=== PATIENT | male | born 1955 | race African-American/Black ===

== ENCOUNTER → 2016-12-29 | Outpatient (CLI) | payer OTHER, MEDICAID ==
[2016-09-19 20:49] VITALS: BP 137/75
[2016-12-29 09:18] LABS: BASOPHILS % (AUTO) 0.5 % (0.2-1.0); EOSINOPHILS # (AUTO) 0.1 x10^3/uL (0.0-0.2); EOSINOPHILS % (AUTO) 3.4 % (0.9-2.9); HEMATOCRIT 45.1 % (42.0-54.0); HEMOGLOBIN 15.2 g/dL (13.5-18.0); MEAN CORPUSCULAR HGB CONC 33.6 g/dL (33.0-35.0); MEAN CORPUSCULAR VOLUME 92.4 fL (80.0-100.0); MEAN PLATELET VOLUME 7.6 fL (7.4-11.0); MONOCYTES # (AUTO) 0.4 x10^3/uL (0.3-0.8); MONOCYTES % (AUTO) 9.8 % (0.0-13.0); NEUTROPHILS # (AUTO) 2.8 x10^3/uL (2.2-4.8); NEUTROPHILS % (AUTO) 64.3 % (42.0-75.0); PLATELET COUNT 185 X10^3/uL (150.0-450.0); RED BLOOD COUNT 4.88 X10^6/uL (4.7-6.0); RED CELL DISTRIBUTION WIDTH 12.4 % (11.6-16.5); WHITE BLOOD COUNT 4.4 X10^3/uL (3.6-10.0)
== END ==
LOC: RAD 08:53
PROVIDERS: ATTEND Obstetrics & Gynecology Obstetrics
DX: R05 Cough (principal)
CPT/HCPCS: 36415; 85025

== ENCOUNTER 2017-01-11 15:52 | Emergency (ER) | payer OTHER, MEDICAID ==
[2017-01-11 15:58] VITALS: BP 122/79; BMI 27.3
--- NOTE | 2017-01-11 16:41 | DR.GENAD ---
HPI - PCP Primary Care Physician: MIRA - HPI Comment HPI Comment: CURRENTLY, HEART RATE IS CONTROL. PATIENT SAIT BP WAS NORMAL AND DENIES FEVER. DENIES EXCESS CAFFEINE USE. - Complaint/Symptoms Chief Complaint Doctors Comments: RAPID POUNDING HEART RATE AT HOME WHICH MADE PATIENT DIZZY AND HAVE CHEST SORENESS TIMES FIVE DAYS. Chief Complaint:: "MY HEART RATE HAS BEEN STAYING AT 108 OR 110 FOR FIVE DAYS IN A ROW." - Nurses notes reviewed Nurses Notes Review: Yes - Source History Provided: Patient - Mode of Arrival Mode of Arrival: Ambulatory - Timing Onset of Chief Complaint: 01/07/17 Came on: Suddenly - Duration Duration: Intermittent Duration: Days - Severity Severity: Moderate PMH - PMH Past Medical History: Yes Past Medical History: Hypertension Past Medical History Comment: HIV POSITIVE, NECK AND BACK PAIN Past Surgical History: No - Family History History of Family Medical Conditions: Yes Family Medical History: Diabetes Mellitus, Hypertension - Social History Alcohol Use: None Do you use any recreational Drugs:: No Lives With: Spouse Lives Where: Home - infectious screening In the last 2 months have you had wt loss of >10#?: NO Have you had fever, night sweats or hemotysis?: No Have you traveled outside the country in the last 6 months?: No Isolation: Standard ROS - Review of Systems Constitutional: Weakness, Fatigue Eyes: No Symptoms Reported. negative: Eye Pain, Discharge ENTM: No Symptoms Reported. negative: Ear Pain, Nose Discharge, Nose Congestion , Throat Pain Respiratoy: No Symptoms Reported. negative: Productive Cough, Short of Breath, Wheezing, Hemoptysis Cardiovascular: Chest Pain, Palpitations Gastrointestinal/Abdominal: Nausea. negative: Abdominal Pain, Constipation, Vomiting Genitourinary: No Symptoms Reported Neurological: No Symptoms Reported, Weakness, Dizziness. negative: Headache Musculoskeletal: No Symptoms Reported Integumentary: No Symptoms Reported Hematologic/Lymphatic: No Symptoms Reported Endocrine: No Symptoms Reported All Other Systems: Reviewed and Negative PE - Vital Signs Vitals: Temperature 98.4 F Pulse Rate 88 Respiratory Rate 20 Blood Pressure 122/79 O2 Sat by Pulse Oximetry 98 - General Limitations: No Limitations General Appearance: Alert - Head Head Exam: Normal Inspection - Eyes Eye exam: Normal Appearance - ENT ENT Exam: Normal External Ear Exam External Ear Exam: Normal External Inspection TM/Canal Exam: Bilateral Normal Nose Exam: Normal Nose Exam Mouth Exam: Normal Inspection Throat Exam: Normal Inspection - Neck Neck Exam: Normal Inspection - Chest Chest Inspection: Symmetric Chest Wall Rise - Respiratory Respiratory Exam: Normal Lung Sounds Bilat Respiratory Exam: Bilateral Clear to Auscultation - Cardiovascular Cardiovascular Exam: Regular Rate, Normal Rhythm, Normal Heart Sounds - Abdominal Exam Abdominal Exam: Normal Bowel Sounds, Soft. negative: Tenderness - Extremities Extremities Exam: Normal Inspection - Back Back Exam: Normal Inspection - Neurologic Neurological Exam: Alert, Oriented X3, CN II-XII Intact, Normal Gait, Reflexes Normal. negative: Motor Sensory Deficit - Psychiatric Psychiatric Exam: Anxious - Skin Skin Exam: Normal Color MDM - Differential Diagnosis Differential Diagnosis: PALPITATION, HEART POUNDING. DIZZINESS, CHEST PAIN Course - Treatment Treatment: SEE ORDERS - Education/Counseling Education/Counseling: Patient, Education Educated On: Diagnosis, Needs for Follow Up ROR - Labs Reviewed Laboratory Results Reviewed?: Yes Result Diagrams: 01/11/17 17:18 01/11/17 17:18 Laboratory: WBC 4.8 X10^3/uL (3.6-10.0) 01/11/17 17:18 RBC 5.07 X10^6/uL (4.7-6.0) 01/11/17 17:18 Hgb 15.8 g/dL (13.5-18.0) 01/11/17 17:18 Hct 46.7 % (42.0-54.0) 01/11/17 17:18 MCV 92.1 fL (80.0-100.0) 01/11/17 17:18 MCH 31.2 pg (27.0-34.0) 01/11/17 17:18 MCHC 33.9 g/dL (33.0-35.0) 01/11/17 17:18 RDW 12.6 % (11.6-16.5) 01/11/17 17:18 Plt Count 171 X10^3/uL (150.0-450.0) 01/11/17 17:18 MPV 8.1 fL (7.4-11.0) 01/11/17 17:18 Neut % 63.9 % (42.0-75.0) 01/11/17 17:18 Lymph % 21.9 % (21.0-51.0) 01/11/17 17:18 [place] % 10.9 % (0.0-13.0) 01/11/17 17:18 Eos % 2.7 % (0.9-2.9) 01/11/17 17:18 Baso % 0.6 % (0.2-1.0) 01/11/17 17:18 Neut # 3.0 x10^3/uL (2.2-4.8) 01/11/17 17:18 Lymph # 1.0 X10^3/uL (1.3-2.9) L 01/11/17 17:18 [place] # 0.5 x10^3/uL (0.3-0.8) 01/11/17 17:18 Eos # 0.1 x10^3/uL (0.0-0.2) 01/11/17 17:18 Baso # 0.0 X10^3/uL (0.0-0.1) 01/11/17 17:18 Absolute Nucleated RBC 0.1 /100WBC 01/11/17 17:18 Sodium 141 mmol/L (136-145) 01/11/17 17:18 Corrected Sodium TNP 01/11/17 17:18 Potassium 3.8 mmol/L (3.5-5.1) 01/11/17 17:18 Chloride 101 mmol/L (98-107) 01/11/17 17:18 Carbon Dioxide 31.0 mmol/L (21-32) 01/11/17 17:18 BUN 13 mg/dL (7-18) 01/11/17 17:18 Creatinine 1.14 mg/dL (0.70-1.30) 01/11/17 17:18 Est GFR (MDRD) Af Amer > 60 (>60) 01/11/17 17:18 Est GFR (MDRD) Non-Af > 60 (>60) 01/11/17 17:18 Glucose 90 mg/dL (65-99) 01/11/17 17:18 Calcium 9.1 mg/dL (8.5-10.1) 01/11/17 17:18 Corrected Calcium TNP 01/11/17 17:18 Total Bilirubin 0.80 mg/dL (0.2-1.0) 01/11/17 17:18 AST 23 Units/L (15-37) 01/11/17 17:18 ALT 34 Units/L (12-78) 01/11/17 17:18 Alkaline Phosphatase 68 Units/L (46-116) 01/11/17 17:18 Creatine Kinase 100 Units/L (39-308) 01/11/17 17:18 CK-MB (CK-2) 1.0 ng/mL (0-4.0) 01/11/17 17:18 CK/CKMB % Calc 1.0 % (<4) 01/11/17 17:18 Troponin I < 0.02 ng/mL (0-1.5) 01/11/17 17:18 Total Protein 9.1 g/dL (6.4-8.2) H 01/11/17 17:18 Albumin 4.3 g/dL (3.4-5.0) 01/11/17 17:18 Globulin 4.8 g/dL (2.5-4.5) H 01/11/17 17:18 Albumin/Globulin Ratio 0.9 Ratio (1.1-2.1) L 01/11/17 17:18 - XRAY XRAY Interpreted by: Radiologist XRAY Findings: REPORT DISCUSS WITH PATIENT. - EKG Rhythm: NSR (EKG NOTED) - Diagnosis Discharge Problem: Heart palpitations - Discharge Plan Disposition: 01 HOME, SELF-CARE Condition: Stable - Follow ups/Referrals Follow ups/Referrals: NFD,None [Primary Care Provider] - 01/12/17 - Instructions Instructions: Palpitations, [id number] Additional Instructions: RETURN TO ED IF WORSE.
[2017-01-11 17:35] LABS: BASOPHILS % (AUTO) 0.6 % (0.2-1.0); EOSINOPHILS # (AUTO) 0.1 x10^3/uL (0.0-0.2); EOSINOPHILS % (AUTO) 2.7 % (0.9-2.9); HEMATOCRIT 46.7 % (42.0-54.0); HEMOGLOBIN 15.8 g/dL (13.5-18.0); LYMPHOCYTES % (AUTO) 21.9 % (21.0-51.0); MEAN CORPUSCULAR HEMOGLOBIN 31.2 pg (27.0-34.0); MEAN CORPUSCULAR HGB CONC 33.9 g/dL (33.0-35.0); MEAN CORPUSCULAR VOLUME 92.1 fL (80.0-100.0); MEAN PLATELET VOLUME 8.1 fL (7.4-11.0); MONOCYTES # (AUTO) 0.5 x10^3/uL (0.3-0.8); MONOCYTES % (AUTO) 10.9 % (0.0-13.0); NEUTROPHILS % (AUTO) 63.9 % (42.0-75.0); PLATELET COUNT 171 X10^3/uL (150.0-450.0); RED BLOOD COUNT 5.07 X10^6/uL (4.7-6.0); RED CELL DISTRIBUTION WIDTH 12.6 % (11.6-16.5); WHITE BLOOD COUNT 4.8 X10^3/uL (3.6-10.0)
[2017-01-11 17:51] LABS: BLOOD UREA NITROGEN 13 mg/dL (7-18); CALCIUM 9.1 mg/dL (8.5-10.1); CHLORIDE 101 mmol/L (98-107); CREATININE 1.14 mg/dL (0.70-1.30); GLUCOSE 90 mg/dL (65-99); SODIUM 141 mmol/L (136-145); TROPONIN I < 0.02 ng/mL (0-1.5); eGFR BLACK RACES > 60 (>60); eGFR NON BLACK RACES > 60 (>60)
[2017-01-11 17:55] LABS: ALANINE AMINOTRANSFERASE 34 Units/L (12-78); ALBUMIN 4.3 g/dL (3.4-5.0); ALKALINE PHOSPHATASE 68 Units/L (46-116); ASPARTATE AMINO TRANSFERASE 23 Units/L (15-37); CREATINE KINASE 100 Units/L (39-308); TOTAL PROTEIN 9.1 g/dL (6.4-8.2)
--- NOTE | 2017-01-11 18:51 | RAD ---
Chest AP portable Indication: Chest pain. Findings: There is no pneumothorax or effusion. There is no consolidation. Heart size is normal. Impression: No acute chest process. Reported By:
== END 2017-01-11 19:00 | disposition home or self-care (01) ==
LOC: ER 16:08
DX: R00.2 Palpitations (principal)
CPT/HCPCS: 36415; 71010; 80053; 82550; 82553; 84484; 85025; 93005; 93010; 99282; 99283

== ENCOUNTER → 2017-04-12 | Outpatient (CLI) | payer OTHER, MEDICAID ==
[2017-04-12 12:06] LABS: BASOPHILS % (AUTO) 0.2 % (0.2-1.0); HEMATOCRIT 44.3 % (42.0-54.0); HEMOGLOBIN 15.2 g/dL (13.5-18.0); LYMPHOCYTES # (AUTO) 1.2 X10^3/uL (1.3-2.9); MEAN CORPUSCULAR HEMOGLOBIN 31.8 pg (27.0-34.0); MEAN CORPUSCULAR HGB CONC 34.2 g/dL (33.0-35.0); MEAN CORPUSCULAR VOLUME 92.8 fL (80.0-100.0); MEAN PLATELET VOLUME 8.1 fL (7.4-11.0); MONOCYTES # (AUTO) 0.5 x10^3/uL (0.3-0.8); MONOCYTES % (AUTO) 11.9 % (0.0-13.0); NEUTROPHILS # (AUTO) 2.1 x10^3/uL (2.2-4.8); NEUTROPHILS % (AUTO) 55.9 % (42.0-75.0); PLATELET COUNT 184 X10^3/uL (150.0-450.0); RED BLOOD COUNT 4.77 X10^6/uL (4.7-6.0); WHITE BLOOD COUNT 3.8 X10^3/uL (3.6-10.0)
[2017-04-12 12:17] LABS: ALANINE AMINOTRANSFERASE 43 Units/L (12-78); ALBUMIN 3.9 g/dL (3.4-5.0); ALKALINE PHOSPHATASE 54 Units/L (46-116); ASPARTATE AMINO TRANSFERASE 29 Units/L (15-37); BLOOD UREA NITROGEN 11 mg/dL (7-18); CALCIUM 8.4 mg/dL (8.5-10.1); CARBON DIOXIDE 30.8 mmol/L (21-32); CHLORIDE 104 mmol/L (98-107); CHOL/HDL RATIO 5.2 (0.0-5.0); CHOLESTEROL 171 mg/dL (0-200); CREATININE 1.14 mg/dL (0.70-1.30); GLUCOSE 79 mg/dL (65-99); HDL CHOLESTEROL 33 mg/dL (40-60); SODIUM 139 mmol/L (136-145); TOTAL PROTEIN 8.2 g/dL (6.4-8.2); TRIGLYCERIDES 91 mg/dL (0-150); eGFR BLACK RACES > 60 (>60); eGFR NON BLACK RACES > 60 (>60)
== END ==
LOC: LAB 11:37
PROVIDERS: ATTEND Obstetrics & Gynecology Obstetrics
DX: I10 Essential (primary) hypertension (principal)
CPT/HCPCS: 36415; 80053; 80061; 85025

== ENCOUNTER 2017-09-22 15:21 | Emergency (ER) | payer OTHER, MEDICAID ==
[2017-09-22 15:27] VITALS: BP 128/80; BMI 27.3
[2017-09-22] MEDS ORDERED: NORFLEX INJ IM ONE (17:19)
[2017-09-22] MEDS ORDERED: TORADOL 60 MG VIAL IM ONE (17:19)
[2017-09-22] MEDS ORDERED: NORFLEX INJ ONE (17:21)
[2017-09-22] MEDS ORDERED: TORADOL 60 MG VIAL ONE (17:21)
--- NOTE | 2017-09-22 17:26 | DR.GENAD ---
HPI - PCP Primary Care Physician: MIRA - HPI Comment HPI Comment: PAIN CHRONIC WITH ACUTE EXACERBATION PAST FEW DAYS. DIFFICULTY RAISING HAND RT SHOULDER. NO TRAUMA. NO FEVER. - Complaint/Symptoms Chief Complaint Doctors Comments: RIGHT SHOULDER PAIN. Chief Complaint:: PT C/O RT SHOULDER PAIN. PT STATES HE HAS BEEN SEEING DR MEYRES FOR HIS SHOULDER, BUT OVER THE LAST COUPLE OF DAYS HE HAS NOT BEEN ABLE TO MOVE IT AND IT HAS BEEN HAVING SEVERE PAIN - Nurses notes reviewed Nurses Notes Review: Yes - Source History Provided: Patient - Mode of Arrival Mode of Arrival: Ambulatory - Timing Onset of Chief Complaint: 09/20/17 Came on: Suddenly - Duration Duration: Constant Duration: Days - Severity Severity: Moderate PMH - PMH Past Medical History: Yes Past Medical History: Hypertension Past Surgical History: No - Family History History of Family Medical Conditions: Yes Family Medical History: Diabetes Mellitus, Hypertension - Social History Does any household member use tobacco: No Alcohol Use: None Do you use any recreational Drugs:: No Lives With: Family Lives Where: Home - infectious screening In the last 2 months have you had wt loss of >10#?: NO Have you had fever, night sweats or hemotysis?: No Have you traveled outside the country in the last 6 months?: No Isolation: Standard ROS - Review of Systems Constitutional: No Symptoms Reported Eyes: No Symptoms Reported ENTM: No Symptoms Reported Respiratoy: No Symptoms Reported Cardiovascular: No Symptoms Reported Gastrointestinal/Abdominal: No Symptoms Reported Genitourinary: No Symptoms Reported Neurological: No Symptoms Reported Musculoskeletal: Right, Shoulder Integumentary: No Symptoms Reported Hematologic/Lymphatic: No Symptoms Reported Endocrine: No Symptoms Reported All Other Systems: Reviewed and Negative PE - Vital Signs Vitals: Temperature 98.4 F Pulse Rate 81 Respiratory Rate 20 Blood Pressure 128/80 O2 Sat by Pulse Oximetry 94 - General Limitations: No Limitations General Appearance: Alert - Head Head Exam: Normal Inspection - Eyes Eye exam: Normal Appearance - ENT ENT Exam: Normal External Ear Exam External Ear Exam: Normal External Inspection TM/Canal Exam: Bilateral Normal Nose Exam: Normal Nose Exam Mouth Exam: Normal Inspection Throat Exam: Normal Inspection - Neck Neck Exam: Trachea Midline - Chest Chest Inspection: Symmetric Chest Wall Rise - Respiratory Respiratory Exam: Normal Lung Sounds Bilat Respiratory Exam: Bilateral Clear to Auscultation - Cardiovascular Cardiovascular Exam: Regular Rate, Normal Rhythm, Normal Heart Sounds - Abdominal Exam Abdominal Exam: Normal Bowel Sounds, Soft. negative: Tenderness - Extremities Extremities Exam: Normal Inspection (SHOULDER IS TENDER, ROM IS DECREASE. PULSES INTACT.), Tenderness - Back Back Exam: Normal Inspection - Neurologic Neurological Exam: Alert, Oriented X3 - Psychiatric Psychiatric Exam: Normal Affect, Normal Mood - Skin Skin Exam: Normal Color MDM - Differential Diagnosis Differential Diagnosis: RIGHT SHOULDER SPRAIN, STRAIN, FRACTURE. Course - Treatment Treatment: SEE ORDERS. - Education/Counseling Education/Counseling: Patient, Education Educated On: Treatment, Diagnosis, Needs for Follow Up ROR - XRAY XRAY Interpreted by: Radiologist XRAY Findings: REPORT DISCUSS WITH PATIENT. - Diagnosis Discharge Problem: Sprain of right shoulder Qualifiers: Encounter type: initial encounter Shoulder sprain type: unspecified sprain Qualified Code(s): S43.401A - Unspecified sprain of right shoulder joint, initial encounter - Discharge Plan Disposition: 01 HOME, SELF-CARE Condition: Stable Prescriptions: Cyclobenzaprine HCl [FLEXERIL 10 MG *] 10 mg PO TID PRN #20 tab PRN Reason: Ibuprofen [MOTRIN TAB 600 MG *] 600 mg PO TID PRN #30 tab PRN Reason: Pain/Inflammation - Follow ups/Referrals Follow ups/Referrals: MIRIAN MEYERS [Primary Care Provider] - 3 days - Instructions Instructions: Shoulder Sprain Additional Instructions: RETURN TO ED IF WORSE.
--- NOTE | 2017-09-22 18:40 | RAD ---
Right shoulder, four views Indication: Shoulder pain without trauma Comparison: None Findings: No acute fracture or malalignment is identified. There are mild degenerative changes of the AC joint. The acromiohumeral interval is within normal limits. Surrounding soft tissues are unremark able. Impression: No acute radiographic abnormality of the right shoulder. Mild AC joint DJD. Reported By:
== END 2017-09-22 18:46 | disposition home or self-care (01) ==
LOC: ER 15:30
DX: S43.401A Unspecified sprain of right shoulder joint, initial encounter (principal); Y33.XXXA Other specified events, undetermined intent, initial encounter; Y92.9 Unspecified place or not applicable
CPT/HCPCS: 73030; 96372; 99282; 99283; J1885; J2360

== ENCOUNTER 2018-03-10 14:56 | Emergency (ER) | payer OTHER, MEDICAID ==
[2018-03-10 15:07] VITALS: BP 122/79; BMI 28.1
--- NOTE | 2018-03-10 15:40 | DR.GENAD ---
HPI - PCP Primary Care Physician: Dr. Meyers - HPI Comment HPI Comment: MED TAKEN AT HOME NOT HELPING PAIN. GETTING WORSE. NO FEVER OR DYSURIA. - Complaint/Symptoms Chief Complaint Doctors Comments: LOWER BACK PAIN RADIATING TO LEFT LEG SINCE WAKING UP THIS AM. Chief Complaint:: Pt woke up yesterday morning with severe pain in the lower back. Pain is constant and radiates down left leg. Self Treatment fo Chief Complaint: Muscle relaxers with no relief - Nurses notes reviewed Nurses Notes Review: Yes - Source History Provided: Patient - Mode of Arrival Mode of Arrival: Ambulatory - Timing Onset of Chief Complaint: 03/10/18 Came on: Suddenly - Duration Duration: Constant Duration: Hours - Severity Severity: Moderate PMH - PMH Past Medical History: Yes Past Medical History: Arthritis, Hypertension Past Medical History Comment: HIV Past Surgical History: No - Family History History of Family Medical Conditions: Yes Family Medical History: Diabetes Mellitus, [place], Coronary Artery Disease, Hypertension - Social History Does patient currently use any type of tobacco product: No Have you used tobacco products in the last 12 months: No Type of Tobacco Use: None Does any household member use tobacco: No Alcohol Use: None Do you use any recreational Drugs:: No Lives With: Spouse Lives Where: Home - infectious screening In the last 2 months have you had wt loss of >10#?: NO Have you had fever, night sweats or hemotysis?: No Have you traveled outside the country in the last 6 months?: No Isolation: Standard ROS - Review of Systems Constitutional: No Symptoms Reported Eyes: No Symptoms Reported ENTM: No Symptoms Reported Respiratoy: No Symptoms Reported Cardiovascular: No Symptoms Reported Gastrointestinal/Abdominal: No Symptoms Reported Genitourinary: No Symptoms Reported Neurological: No Symptoms Reported Musculoskeletal: Back Pain, Back Integumentary: No Symptoms Reported Hematologic/Lymphatic: No Symptoms Reported Endocrine: No Symptoms Reported All Other Systems: Reviewed and Negative PE - Vital Signs Vitals: Temperature 98.0 F Pulse Rate 90 Respiratory Rate 20 Blood Pressure 122/79 O2 Sat by Pulse Oximetry 94 - General Limitations: No Limitations General Appearance: Alert - Head Head Exam: Normal Inspection - Eyes Eye exam: Normal Appearance - ENT ENT Exam: Normal External Ear Exam External Ear Exam: Normal External Inspection TM/Canal Exam: Bilateral Normal Nose Exam: Normal Nose Exam Mouth Exam: Normal Inspection Throat Exam: Normal Inspection - Neck Neck Exam: Trachea Midline - Chest Chest Inspection: Symmetric Chest Wall Rise - Respiratory Respiratory Exam: Normal Lung Sounds Bilat Respiratory Exam: Bilateral Clear to Auscultation - Cardiovascular Cardiovascular Exam: Regular Rate, Normal Rhythm, Normal Heart Sounds - Abdominal Exam Abdominal Exam: Normal Inspection - Extremities Extremities Exam: Normal Inspection - Back Back Exam: Paraspinal Tenderness (LOWER BACK) - Neurologic Neurological Exam: Alert, Oriented X3 - Psychiatric Psychiatric Exam: Normal Affect, Normal Mood - Skin Skin Exam: Normal Color MDM - Differential Diagnosis Differential Diagnosis: LOW BACK STRAIN, SCIATICA, UTI Course - Treatment Treatment: SEE ORDERS. IM TORADOL IN ED. - Reevaluation 1st: Improved - Education/Counseling Education/Counseling: Patient, Education Educated On: Diagnosis, Needs for Follow Up - Diagnosis Discharge Problem: Lumbosacral strain Qualifiers: Encounter type: initial encounter Qualified Code(s): S39.012A - Strain of muscle, fascia and tendon of lower back, initial encounter Sciatica Qualifiers: Laterality: right Qualified Code(s): M54.31 - Sciatica, right side - Discharge Plan Disposition: HOME, SELF-CARE Condition: Stable Prescriptions: Cyclobenzaprine HCl [FLEXERIL 10 MG *] 10 mg PO TID PRN #20 tab PRN Reason: Ibuprofen [MOTRIN TAB 600 MG *] 600 mg PO TID PRN #30 tab PRN Reason: Pain/Inflammation - Follow ups/Referrals Follow ups/Referrals: MIRIAN MEYERS [Primary Care Provider] - 3 days - Instructions Instructions: Sciatica, Lumbosacral Strain Additional Instructions: RETURN TO ED IF WORSE.
[2018-03-10] MEDS ORDERED: TORADOL 60 MG VIAL IM ONE (16:08)
[2018-03-10] MEDS ORDERED: TORADOL 60 MG VIAL ONE (16:14)
== END 2018-03-10 17:49 | disposition home or self-care (01) ==
LOC: ER 15:11
DX: S39.012A Strain of muscle, fascia and tendon of lower back, initial encounter (principal); M54.31 Sciatica, right side; Y33.XXXA Other specified events, undetermined intent, initial encounter
CPT/HCPCS: 96372; 99282; 99283; J1885